=== PATIENT | female | born 1965 | race Caucasian/White ===

== ENCOUNTER 2017-11-07 12:33 | Outpatient (CLI) | payer MEDICARE, BC | END 2017-11-07 12:34 | disposition home or self-care (01) | LOC: BICMRI 12:33 | PROVIDERS: ATTEND Orthopaedic Surgery | DX: M25.561 Pain in right knee (principal); S83.241A Other tear of medial meniscus, current injury, right knee, initial encounter ==

== ENCOUNTER 2017-11-12 15:40 | Emergency (ER) | payer MEDICARE, BC ==
[2017-11-12 16:31] LABS: Bilirubin Negative (Negative); Blood, Urine Negative (Negative); Clarity CLEAR (Clear); Glucose, Urine (Dipstick) Negative (Negative); Leukocyte Negative (Negative); Nitrite Negative (Negative); Protein, Urine (Dipstick) Negative (Neg-Trace); Specific Gravity, Urine 1.009 (1.002-1.036); Urobilinogen 0.2 mg/dL (0.2-1.0)
[2017-11-12 16:58] LABS: #Basophils 0.1 thou/uL (0.0-0.2); #Eosinphils 0.1 thou/uL (0.0-0.7); #Lymphocytes 1.8 thou/uL (1.20-3.40); #Monocytes 0.6 thou/uL (0.11-0.59); #Neutrophils 7.3 thou/uL (1.40-6.50); %Basophils 0.6 % (0.0-1.0); %Lymphocytes 18.3 % (21.0-51.0); %Monocytes 5.7 % (0.0-10.0); %Neutrophils 74.4 % (42.0-75.0); Hemoglobin 13.9 g/dL (12.0-16.0); Mean Corpuscular HGB CONC 33.6 g/dL (32.0-36.0); Mean Corpuscular Hemoglobin 30.2 pg (27.0-31.0); Platelet Count 91 thou/uL (130-400); RBC Distribution Width 12.6 % (11.5-14.5); Red Blood Cell (RBC) Count 4.61 mill/uL (4.20-5.40); White Blood Cell (WBC) Count 9.8 thou/uL (4.8-10.8)
[2017-11-12 17:15] LABS: ALT (SGPT) 12 U/L (8-55); AST (SGOT) 15 U/L (5-34); Albumin 4.4 g/dL (3.5-5.0); Alkaline Phosphatase 73 U/L (40-150); Anion Gap 13 mmol/L (10-20); BUN (Urea Nitrogen) 13 mg/dL (9.8-20.1); Bilirubin, Total 0.7 mg/dL (0.2-1.2); Calc. Creatinine Clearance 0 mL/min (70-130); Carbon Dioxide 23 mmol/L (22-29); Chloride 104 mmol/L (98-107); Estimated GFR-MDRD 71; Globulin 3.1 g/dL (2.4-3.5); Glucose 115 mg/dL (70-105); Potassium 4.3 mmol/L (3.5-5.1); Protein, Total 7.5 g/dL (6.0-8.3); Sodium 136 mmol/L (136-145)
[2017-11-12 17:19] LABS: PTT 25.5 SEC (22.9-36.1); Prothrombin Time 13.1 SEC (12.0-14.7)
[2017-11-12 17:26] LABS: CK (CPK) 70 U/L (29-168); Lipase 17 U/L (8-78)
[2017-11-12 17:37] LABS: Digoxin Less than 0.15 ng/mL (0.8-2.0)
[2017-11-12 17:42] LABS: CKMB 0.9 ng/mL (0-6.6); Troponin I Less than 0.010 ng/mL (< 0.028)
[2017-11-12] MEDS ORDERED: Ketorolac Tromethamine 30 MG/ML VIAL ONE (17:46)
--- NOTE | 2017-11-12 18:03 | RAD ---
CHEST ONE VIEW 11/12/17 HISTORY: Left flank pain radiating to the left lower quadrant. COMPARISON: Radiograph 03/20/17. FINDINGS: Lungs are clear. No pneumothorax or effusion. The cardiac silhouette and mediastinal contour is withi n normal limits. IMPRESSION: No acute intrathoracic abnormality. POS: [facility]
--- NOTE | 2017-11-12 18:04 | RAD ---
LEFT RIBS GREATER THAN AND EQUAL TO TWO VIEWS STANDARD 11/12/17 HISTORY: Injury. Pain. COMPARISON: Radiograph same day. FINDINGS: no displaced left sided rib fracture. No hemothorax. IMPRESSION: No displaced left sided rib fracture. POS: [facility]
--- NOTE | 2017-11-15 18:04 | EKG ---
Test Reason : Blood Pressure : / mmHG Vent. Rate : 065 BPM Atrial Rate : 065 BPM P-R Int : 170 ms QRS Dur : 090 ms QT Int : 406 ms P-R-T Axes : 034 014 012 degrees QTc Int : 422 ms Normal sinus rhythm Normal ECG Confirmed by JUANIS HO MD ([id number]), subeditor SURAJ BARTLETT ([id number]) on 11/15/2017 6:03:37 PM Referred By: Confirmed By:JUANIS HO MD
== END 2017-11-12 19:28 | disposition home or self-care (01) ==
LOC: ERS 15:40
DX: S20.212A Contusion of left front wall of thorax, initial encounter (principal); M62.830 Muscle spasm of back; E66.9 Obesity, unspecified; I48.91 Unspecified atrial fibrillation; I47.1 Supraventricular tachycardia; I10 Essential (primary) hypertension; F32.9 Major depressive disorder, single episode, unspecified
CPT/HCPCS: 36415; 71045; 80053; 80162; 81003; 82553; 83690; 84484; 85025; 85610; 85730; 93005; 96374; J1885

== ENCOUNTER 2017-12-08 11:38 | Outpatient (CLI) | payer MEDICARE, BC ==
[2017-12-08 13:10] LABS: #Basophils 0.1 thou/uL (0.0-0.2); #Eosinphils 0.1 thou/uL (0.0-0.7); #Lymphocytes 1.8 thou/uL (1.20-3.40); #Monocytes 0.5 thou/uL (0.11-0.59); #Neutrophils 5.1 thou/uL (1.40-6.50); %Basophils 0.7 % (0.0-1.0); %Eosinophils 1.9 % (0.0-10.0); %Lymphocytes 24.2 % (21.0-51.0); %Monocytes 6.4 % (0.0-10.0); %Neutrophils 66.8 % (42.0-75.0); Mean Corpuscular HGB CONC 33.2 g/dL (32.0-36.0); Mean Corpuscular Hemoglobin 30.2 pg (27.0-31.0); Mean Corpuscular Volume 90.8 fl (81.0-99.0); Mean Platelet Volume 12.6 fL (7.4-10.4); Platelet Count 79 thou/uL (130-400); RBC Distribution Width 12.7 % (11.5-14.5); Red Blood Cell (RBC) Count 4.31 mill/uL (4.20-5.40); White Blood Cell (WBC) Count 7.6 thou/uL (4.8-10.8)
[2017-12-08 13:26] LABS: Anion Gap 12 mmol/L (10-20); BUN (Urea Nitrogen) 23 mg/dL (9.8-20.1); Calc. Creatinine Clearance 0 mL/min (70-130); Calcium 9.3 mg/dL (7.8-10.44); Carbon Dioxide 24 mmol/L (22-29); Chloride 110 mmol/L (98-107); Estimated GFR-MDRD 65; Glucose 103 mg/dL (70-105); Potassium 4.4 mmol/L (3.5-5.1); Sodium 142 mmol/L (136-145)
== END 2017-12-08 11:39 | disposition home or self-care (01) ==
LOC: LABBT 11:38
PROVIDERS: ATTEND Orthopaedic Surgery
DX: Z01.818 Encounter for other preprocedural examination (principal); S83.241A Other tear of medial meniscus, current injury, right knee, initial encounter
CPT/HCPCS: 80048; 85025

== ENCOUNTER 2017-12-10 06:31 | Day surgery (SDC) | payer MEDICARE, BC ==
[2017-12-08 12:01] VITALS: BMI 44.1
--- NOTE | 2017-12-09 14:02 | HP ---
DATE OF ADMISSION: 12/10/2017 HISTORY OF PRESENT ILLNESS: The patient is a 52-year-old female with a several-month history of prog ressive right knee pain without specific injury. Her symptoms are worse with activities, especially getting in and out of a car or changing position. She has had progressive problems despite rest, res triction of activities, anti-inflammatory medications, and previous cortisone injection. It is now i nterfering with day-to-day activities. PAST MEDICAL HISTORY: The patient is, otherwise, in good health. She has a history of previous card iac ablation, history of hypertension, sleep apnea, reflux, and depression. CURRENT MEDICATIONS: Include naproxen, Bystolic, Vilazodone, gabapentin, simvastatin, hydralazine, a spirin, , Ambien. ALLERGIES: She has no known allergies. FAMILY HISTORY/SOCIAL HISTORY/REVIEW OF SYSTEMS: Otherwise unremarkable. PHYSICAL EXAMINATION: GENERAL: Reveals a healthy heavyset female. HEENT: Unremarkable. NECK: Supple. CHEST: Clear. HEART: Regular rate and rhythm. ABDOMEN: Soft, nontender. PELVIC/RECTAL/BREAST: Exams are deferred. EXTREMITIES: Pertinent findings of the right knee, there is no definite effusion. There is normal a lignment. There is tenderness over the medial joint line. Range of motion is 0-120 degrees. There is pain with further flexion with Georgina's maneuver. There is no instability. There is right anta lgic gait. Neurovascular exam is intact. X-RAY FINDINGS: X-rays of the right knee reveal mild degenerative changes. MRI scan of the right kn ee reveals a large tear of the posterior horn of the medial meniscus and degenerative changes primari ly at the patellofemoral joint. IMPRESSION: Internal derangement of right knee with medial meniscal tear, possible component of dege nerative joint disease. PLAN: Arthroscopy right knee with partial medial meniscectomy and/or debridement and shaving. The n ature of the surgery, length of recovery, and potential complications such as infection, loss of jenniffer on, incomplete relief, thromboembolic phenomenon, neurovascular injury, recurrent tear, post-traumati c degenerative arthritis, and need for additional treatment, repeat surgery have been discussed in de tail.
[2017-12-10] MEDS ORDERED: CEFAZOLIN/Water 2 GM/20 ML SYRINGE ONE (07:00)
[2017-12-10] MEDS ORDERED: Bupivacaine HCl 0.5%/Epinephrine 1:200,000/PF 30 ml Vial ONE (08:44)
[2017-12-10] MEDS ORDERED: Morphine 10 MG/ML VIAL ONE (09:01)
[2017-12-10] MEDS ORDERED: Fentanyl 250 MCG/5 ML VIAL ONE (10:54)
--- NOTE | 2017-12-10 11:00 | OP ---
DATE OF SURGERY: 12/10/2017 SURGEON: Pablito Barger M.D. ANESTHESIA: General. PREOPERATIVE DIAGNOSIS: Medial meniscal tear, right knee. POSTOPERATIVE DIAGNOSES: Healing root tear of medial meniscus and degenerative arthritis, right knee . PROCEDURE PERFORMED: Arthroscopy right knee with debridement and shaving (chondroplasty), medial fem oral condyle and patella. OPERATIVE FINDINGS: Examination under anesthesia revealed the knee to be stable. Arthroscopy was so mewhat difficult because of the patient's body size, but satisfactory arthroscopic evaluation was obt ained. There was moderate effusion. There was grade II and grade III changes of the patella and the weightbearing surface of the medial femoral condyle. There was no evidence of exposed bone. There was what appeared to be a healing tear at the very root attachment of the posterior horn of the media l meniscus, I could see where there was a tear, but the bulk of the meniscus was intact. It was unst able and I elected to not remove any more meniscus especially in light of her body habitus and alread y having arthritic changes. The ACL was intact. Lateral meniscus and lateral compartment were florian l except for minimal degenerative fraying of the free border of meniscus and the bulk of the meniscus was intact. NARRATIVE REPORT: After satisfactory anesthesia was induced in supine position, the patient was plac ed in a leg iqbal and prepped and draped in routine manner. The right leg was elevated, exsanguinat ed with an Esmarch bandage, and the tourniquet inflated to 300 mmHg. [place] arthroscope was introdu truman into the anterolateral portal, probe through an anteromedial portal, and inflow and outflow accom plished through the scope using the Elizabeth arthroscopy pump. Arthroscopy was carried out and the ab ove findings were noted. All findings were documented with the video printer and hard copies were ma de. The medial femoral condyle and patellar surfaces were debrided with the motorized shaver of all loose fronds of articular surface. The scope was then introduced into the anteromedial portal. All compartments visualized and no additional pathology found. I took particular attention to do the pos terior horn of the medial meniscus with it and the above findings were noted. It was stable to probi ng and I elected to leave this as is. The knee was then copiously irrigated through the scope and al l instruments withdrawn. Twenty mL of 0.5% Marcaine with epinephrine was instilled into the knee juna nt, an additional 10 mL injected about the portal sites. The portal sites were closed with 3-0 nylon and a sterile bulky compressive dressing was applied. The tourniquet was released after 39 minutes. The foot promptly pinked up. The patient was awakened, taken to recovery room in stable condition. There were no apparent intraoperative complications. The estimated blood loss was negligible. The patient will be discharged home in satisfactory condition. She was instructed on ice, elevation, use of crutches, and home exercise program by the Physical Therapy Department. She was given brittany phelps wound care instructions and a prescription for [place] 7.5 for pain, 40 tablets. She will be recheck ed in my office in 10-14 days or sooner if there are any problems prior to that time.
[2017-12-10] MEDS ORDERED: HYDROcodone/Acetaminophen 5/325 mg Tablet ONE (12:09)
[2017-12-10] MEDS ORDERED: Ondansetron HCl/PF 4 MG/2 ML Vial ONE (15:37)
[2017-12-10] MEDS ORDERED: PROPOFOL 200 MG/20 ML VIAL ONE (15:37)
[2017-12-10] MEDS ORDERED: Ketorolac Tromethamine 30 MG/ML VIAL ONE (15:37)
[2017-12-10] MEDS ORDERED: Lidocaine 1% PF 5 ML VIAL ONE (15:37)
[2017-12-10] MEDS ORDERED: ePHEDrine/0.9% NaCl/PF SYRINGE 50 mg/10 ml ONE (15:37)
== END 2017-12-10 15:10 | disposition home or self-care (01) ==
LOC: SDC 06:31 → EEVIPCON 11:15 → SDC 15:10
PROVIDERS: ATTEND Orthopaedic Surgery
PROC: 0SBC4ZZ Excision of Right Knee Joint, Percutaneous Endoscopic Approach (ICD-10-PCS; principal; 2017-12-10)
DX: S83.241A Other tear of medial meniscus, current injury, right knee, initial encounter (principal); M17.11 Unilateral primary osteoarthritis, right knee; E78.00 Pure hypercholesterolemia, unspecified; I10 Essential (primary) hypertension; G47.30 Sleep apnea, unspecified; F32.9 Major depressive disorder, single episode, unspecified; G43.909 Migraine, unspecified, not intractable, without status migrainosus; I48.91 Unspecified atrial fibrillation; Z79.899 Other long term (current) drug therapy; Z79.82 Long term (current) use of aspirin
CPT/HCPCS: 29877; 96374; 97139; G8978; G8979; G8980; J0670; J1885; J2001; J2270; J2405; J2704; J3010

== ENCOUNTER 2018-01-21 09:21 | Outpatient (CLI) | payer MEDICARE, BC | END 2018-01-21 09:22 | disposition home or self-care (01) | LOC: BICMAMMO 09:21 | PROVIDERS: ATTEND Obstetrics & Gynecology | DX: Z12.31 Encounter for screening mammogram for malignant neoplasm of breast (principal); N63.10 Unspecified lump in the right breast, unspecified quadrant | CPT/HCPCS: 77063; 77067 ==

== ENCOUNTER 2018-01-21 14:08 | Outpatient (CLI) | payer MEDICARE, BC | END 2018-01-21 14:09 | disposition home or self-care (01) | LOC: BICULT 14:08 | PROVIDERS: ATTEND Obstetrics & Gynecology | DX: R92.8 Other abnormal and inconclusive findings on diagnostic imaging of breast (principal) ==

== ENCOUNTER 2018-07-07 16:59 | Emergency (ER) | payer MEDICARE, BC ==
[2018-07-07 17:32] LABS: Hemoglobin 13.6 g/dL (12.0-16.0); Mean Corpuscular HGB CONC 32.6 g/dL (32.0-36.0); Mean Corpuscular Hemoglobin 29.8 pg (27.0-31.0); Mean Corpuscular Volume 91.2 fL (78.0-98.0); RBC Distribution Width 12.5 % (11.5-14.5); Red Blood Cell (RBC) Count 4.56 mill/uL (4.20-5.40); White Blood Cell (WBC) Count 8.8 thou/uL (4.8-10.8)
[2018-07-07] MEDS ORDERED: Nitroglycerin 0.4 MG TAB (25 Tab Bottle) ONE (17:36)
[2018-07-07 17:49] LABS: #Basophils 0.1 thou/uL (0.0-0.2); #Eosinphils 0.2 thou/uL (0.0-0.7); #Lymphocytes 2.5 thou/uL (1.20-3.40); #Monocytes 0.6 thou/uL (0.11-0.59); #Neutrophils 5.5 thou/uL (1.40-6.50); %Basophils 0.8 % (0.0-1.0); %Eosinophils 1.8 % (0.0-10.0); %Lymphocytes 28.1 % (21.0-51.0); %Monocytes 6.4 % (0.0-10.0); %Neutrophils 62.8 % (42.0-75.0); Mean Platelet Volume 13.3 fL (7.4-10.4); Platelet Count 85 thou/uL (130-400)
[2018-07-07 17:56] LABS: ALT (SGPT) 11 U/L (8-55); AST (SGOT) 16 U/L (5-34); Albumin 4.3 g/dL (3.5-5.0); Alkaline Phosphatase 75 U/L (40-150); Anion Gap 12 mmol/L (10-20); BUN (Urea Nitrogen) 18 mg/dL (9.8-20.1); Bilirubin, Total 0.7 mg/dL (0.2-1.2); CK (CPK) 57 U/L (29-168); Calc. Creatinine Clearance 0 mL/min (70-130); Calcium 9.8 mg/dL (7.8-10.44); Carbon Dioxide 28 mmol/L (22-29); Chloride 104 mmol/L (98-107); Estimated GFR-MDRD 58; Globulin 3.2 g/dL (2.4-3.5); Glucose 93 mg/dL (70-105); Lipase 23 U/L (8-78); Potassium 4.2 mmol/L (3.5-5.1); Protein, Total 7.5 g/dL (6.0-8.3); Sodium 140 mmol/L (136-145)
[2018-07-07 18:01] LABS: CKMB 0.8 ng/mL (0-6.6); Troponin I Less than 0.010 ng/mL (< 0.028)
[2018-07-07] MEDS ORDERED: Mag-Al 1200 mg/1200 mg/30 ML UDCUP ONE (18:24)
[2018-07-07] MEDS ORDERED: Lidocaine Viscous Sol 2% 15 ml UD Cup ONE (18:24)
[2018-07-07 19:11] LABS: Bilirubin Negative (Negative); Blood, Urine Negative (Negative); Clarity CLEAR (Clear); Glucose, Urine (Dipstick) Negative (Negative); Leukocyte Negative (Negative); Nitrite Negative (Negative); Protein, Urine (Dipstick) Negative (Neg-Trace); Urobilinogen 0.2 mg/dL (0.2-1.0); pH, Urine 5.5 (5.0-9.0)
--- NOTE | 2018-07-07 19:32 | RAD ---
CHEST ONE VIEW: 07/07/18 HISTORY: Atrial fibrillation. Chest pain. COMPARISON: 11/12/17. FINDINGS: The cardiac silhouette is magnified by projection. Pulmonary vasculature unremarkable. Mediastinum is midline. No lobar consolidation or evidence of pneumothorax. electrician station assistant leads overlie the chest . IMPRESSION: No active cardiopulmonary abnormalities are demonstrated. POS: [facility]
== END 2018-07-07 19:50 | disposition home or self-care (01) ==
LOC: ERS 16:59
DX: R07.89 Other chest pain (principal); I48.91 Unspecified atrial fibrillation; I10 Essential (primary) hypertension; E66.9 Obesity, unspecified; F32.9 Major depressive disorder, single episode, unspecified; Z79.899 Other long term (current) drug therapy; Z79.82 Long term (current) use of aspirin
CPT/HCPCS: 71045; 80053; 81003; 82550; 82553; 83690; 84484; 85025; 85379; 93005; 96360; 96361

== ENCOUNTER 2018-07-20 08:47 | Day surgery (SDC) | payer MEDICARE, BC ==
--- NOTE | 2018-07-20 12:15 | OP ---
DATE OF PROCEDURE: 07/20/2018 SURGEON: Dr. Diego Valladares PREOPERATIVE DIAGNOSES: 1. Chest pain. 2. Gastroesophageal reflux disease. PROCEDURE: After informed consent was obtained, the patient was placed in the left lateral decubitus position. Anesthesia was administered per the Anesthesia Department. Forward-viewing endoscope was inserted into the esophagus under direct visualization with ease and passed to the second portion of the duodenum with ease. Second portion of the duodenum, duodenal bulb were normal. The pylorus, an trum, body, fundus, and cardia were normal except for some mild erosive antritis, biopsies were taken . Retroflexion of stomach was normal. Esophagus was normal throughout. ASSESSMENT: 1. Mild antral erosive gastritis - status post biopsy. 2. Otherwise normal esophagogastroduodenoscopy. RECOMMENDATIONS: 1. Continue proton pump inhibitor. 2. Await histopathology. 3. Follow up in my office in 1 months' time.
[2018-07-20] MEDS ORDERED: Lidocaine 1% PF 5 ML VIAL ONE (17:03)
[2018-07-20] MEDS ORDERED: PROPOFOL 200 MG/20 ML VIAL ONE (17:03)
== END 2018-07-20 11:25 | disposition home or self-care (01) ==
LOC: SDC 08:47
PROVIDERS: ATTEND Internal Medicine Gastroenterology
PROC: 0DB78ZX Excision of Stomach, Pylorus, Via Natural or Artificial Opening Endoscopic, Diagnostic (ICD-10-PCS; principal; 2018-07-20)
DX: K29.60 Other gastritis without bleeding (principal); K21.9 Gastro-esophageal reflux disease without esophagitis; Z79.2 Long term (current) use of antibiotics; Z79.82 Long term (current) use of aspirin; Z79.899 Other long term (current) drug therapy
CPT/HCPCS: 88305; 88312; 88342; J2001; J2704

== ENCOUNTER 2018-07-21 13:20 | Emergency (ER) | payer BC, MEDICARE, OTHER ==
[2018-07-21 15:16] LABS: #Basophils 0.1 thou/uL (0.0-0.2); #Eosinphils 0.1 thou/uL (0.0-0.7); #Lymphocytes 1.5 thou/uL (1.20-3.40); #Monocytes 0.5 thou/uL (0.11-0.59); #Neutrophils 7.2 thou/uL (1.40-6.50); %Basophils 0.9 % (0.0-1.0); %Eosinophils 0.8 % (0.0-10.0); %Monocytes 5.8 % (0.0-10.0); %Neutrophils 76.4 % (42.0-75.0); Mean Corpuscular HGB CONC 32.5 g/dL (32.0-36.0); Mean Corpuscular Hemoglobin 29.6 pg (27.0-31.0); Mean Corpuscular Volume 91.1 fL (78.0-98.0); Mean Platelet Volume 12.7 fL (7.4-10.4); Platelet Count 91 thou/uL (130-400); RBC Distribution Width 12.7 % (11.5-14.5); Red Blood Cell (RBC) Count 4.73 mill/uL (4.20-5.40); White Blood Cell (WBC) Count 9.5 thou/uL (4.8-10.8)
[2018-07-21 15:36] LABS: CKMB 1.3 ng/mL (0-6.6); Troponin I Less than 0.010 ng/mL (< 0.028)
--- NOTE | 2018-07-21 15:36 | RAD ---
PORTABLE CHEST 1 VIEW: DATE: 07/21/2018. TIME: 1:25 p.m. HISTORY: Chest pain. FINDINGS: Comparison is made with the exam of 07/07/2018. The heart size is borderline. The lungs are expanded without focal areas of consolidation, pneumotho races, linda pulmonary edema, or pleural effusions. IMPRESSION: No acute process. POS: [facility]
[2018-07-21 15:37] LABS: ALT (SGPT) 10 U/L (8-55); AST (SGOT) 14 U/L (5-34); Albumin 4.3 g/dL (3.5-5.0); Alkaline Phosphatase 73 U/L (40-150); Anion Gap 12 mmol/L (10-20); BUN (Urea Nitrogen) 12 mg/dL (9.8-20.1); Bilirubin, Total 0.7 mg/dL (0.2-1.2); Calc. Creatinine Clearance 0 mL/min (70-130); Calcium 9.8 mg/dL (7.8-10.44); Carbon Dioxide 24 mmol/L (22-29); Chloride 106 mmol/L (98-107); Estimated GFR-MDRD 73; Globulin 3.2 g/dL (2.4-3.5); Glucose 101 mg/dL (70-105); Protein, Total 7.5 g/dL (6.0-8.3); Sodium 138 mmol/L (136-145)
[2018-07-21] MEDS ORDERED: cloNIDine 0.1 MG TAB ONE (15:57)
--- NOTE | 2018-07-25 23:07 | EKG ---
Test Reason : CP Blood Pressure : / mmHG Vent. Rate : 075 BPM Atrial Rate : 075 BPM P-R Int : 174 ms QRS Dur : 088 ms QT Int : 404 ms P-R-T Axes : 048 026 009 degrees QTc Int : 451 ms Normal sinus rhythm Normal ECG Confirmed by MARIELY HERNÁNDEZ ([id number]), electronic news gathering editor SURAJ BARTLETT ([id number]) on 07/25/2018 11:07:13 PM Referred By: EDGAR Confirmed By:MARIELY HERNÁNDEZ
== END 2018-07-21 16:06 ==
LOC: ERS 13:20
DX: I10 Essential (primary) hypertension (principal); R07.9 Chest pain, unspecified; F43.0 Acute stress reaction; F41.9 Anxiety disorder, unspecified; F32.9 Major depressive disorder, single episode, unspecified; E66.9 Obesity, unspecified; I48.91 Unspecified atrial fibrillation; I47.1 Supraventricular tachycardia; Z79.82 Long term (current) use of aspirin; Z79.899 Other long term (current) drug therapy
CPT/HCPCS: 36415; 71045; 80053; 82553; 84484; 85025; 93005

== ENCOUNTER 2020-09-25 09:19 | Outpatient (CLI) | payer MEDICARE, OTHER ==
--- NOTE | 2020-09-25 09:32 | RAD ---
RADIOGRAPH RIGHT WRIST 3 VIEWS: DATE: 09/25/2020 HISTORY: 54-year-old female with right wrist pain FINDINGS: No fracture is identified. However, if there is snuffbox tenderness following trauma that suggests an occult scaphoid fracture, then the general recommendation is immobilization and follow-up imaging in 5-10 days. Alignment is normal. Joint spaces are maintained without erosions or large osteophytes. There are no abnormal soft tissue calcifications. No evidence of periostitis, permeative lesion, osteolytic lesion, or osteoblastic lesion. IMPRESSION: Negative
== END 2020-09-25 09:20 | disposition home or self-care (01) ==
LOC: RAD-FRANK 09:19
PROVIDERS: ATTEND Nurse Practitioner Family
DX: M25.531 Pain in right wrist (principal)